=== PATIENT | male | born 1985 | race African-American/Black ===

== ENCOUNTER 2022-09-02 11:27 | Emergency (ER) | payer OTHER ==
[~2022-09-02] VITALS: Ht 175.3 cm; Wt 93.7 kg
[2022-09-02 11:29] VITALS: BP 128/75
[2022-09-02] MEDS ORDERED: PENI500T PO (13:38)
== END 2022-09-02 13:43 | disposition home or self-care (01) ==
LOC: M ED 11:27
DX: J02.0 Streptococcal pharyngitis (principal)